=== PATIENT | female | born 1960 | race Caucasian/White ===

== ENCOUNTER 2018-01-07 05:54 | Day surgery (SDC) | payer OTHER ==
[~2018-01-07 05:54] MED LIST: ABATINEX680 MG PO; ALTACE5 MG PO; CALTRATE 600 W-1 TAB PO; DICY20TA PO; EVISTA60 MG PO; FENOFIBRATE160 MG PO; GABAPENTIN400 MG PO; GABAPENTIN800 MG PO; LEVAQUIN500 MG PO; STRESS FORMULA1 EACH PO; ZANTAC150 M3 PO
== END 2018-01-07 11:15 | disposition home or self-care (01) ==
LOC: AMB-ENDOS 05:54
DX: K64.2 Third degree hemorrhoids (principal)